=== PATIENT | female | born 1950 | race Caucasian/White ===

== ENCOUNTER 2019-08-22 14:02 | Outpatient (CLI) | payer MEDICARE, BC ==
[2019-08-22 15:25] LABS: BASOPHILS # (AUTO) 0.03 x10^3/uL (0-0.1); BASOPHILS % (AUTO) 0 % (0-1); EOSINOPHILS # (AUTO) 0.45 x10^3/uL (0-0.4); EOSINOPHILS % (AUTO) 5 % (1-7); LYMPHOCYTES # (AUTO) 1.89 x10^3/uL (1-3.4); LYMPHOCYTES % (AUTO) 21 % (22-44); MD NO; MEAN CORPUSCULAR HGB CONC 33.2 g/dL (32.4-35.8); MEAN CORPUSCULAR VOLUME 93.3 fL (80-100); MEAN PLATELET VOLUME 8.5 fL (7.4-10.4); MONOCYTES % (AUTO) 10 % (2-9); NEUTROPHILS % (AUTO) 63 % (42-75); PLATELET COUNT 234 x10^3/uL (130-400); RED CELL DISTRIBUTION WIDTH 13.6 % (9.6-15.2)
[2019-08-22 15:29] LABS: ALANINE AMINOTRANSFERASE 23 U/L (12-78); ALBUMIN 3.7 g/dL (3.4-5.0); ANION GAP 6 mmol/L (5-15); CHLORIDE 109 mmol/L (98-107)
[2019-08-22 15:32] LABS: ALKALINE PHOSPHATASE 86 U/L (45-117); BILIRUBIN,TOTAL 0.3 mg/dL (0.2-1.0); TOTAL PROTEIN 7.9 g/dL (6.4-8.2)
== END 2019-08-22 23:59 | disposition home or self-care (01) ==
LOC: STAR 14:02
PROVIDERS: ATTEND Urology
DX: Z01.818 Encounter for other preprocedural examination (principal); N20.0 Calculus of kidney
CPT/HCPCS: 36415; 80053; 85025; 93005

== ENCOUNTER → 2019-08-29 | Outpatient (CLI) | payer MEDICARE, BC ==
[~2019-08-29] MED LIST: ATOR40TA78 PO; CYCL1DRO EACHEYE; ESTR0.5T PO; ESZO3TAB28 PO; LEVO50TA5 PO; METO50TA82 PO; METOPROLO; SERT50TA28 PO; TRAN1TBM PO
== END | disposition home or self-care (01) ==
LOC: RAD 14:37
PROVIDERS: ATTEND Urology
DX: N20.0 Calculus of kidney (principal)
CPT/HCPCS: 74018

== ENCOUNTER 2019-08-30 07:58 | Day surgery (SDC) | payer MEDICARE, BC ==
[~2019-08-30] VITALS: Ht 152.4 cm; Wt 66.7 kg
[2019-08-30] MEDS ORDERED: LACTATED RINGERS 1,000 ML IV SCH (08:16)
[2019-08-30 08:19] VITALS: BP 117/68
[2019-08-30] MEDS ORDERED: FENTANYL PF 100 MCG/2ML IV PRN (08:30)
[2019-08-30] MEDS ORDERED: HYDROmorphone 2 MG/ML, 1ML IVPush PRN (08:30)
[2019-08-30] MEDS ORDERED: ACETAMINOPHEN 325 MG TABLET PO PRN (08:30)
[2019-08-30] MEDS ORDERED: LORazepam 2 MG/ML, 1ML IVPush PRN (08:30)
[2019-08-30] MEDS ORDERED: OXYcodone 5 MG/5 ML ORAL.SOL UDC PO PRN (08:30)
[2019-08-30] MEDS ORDERED: LIDOCAINE-MPF 1%, 2ML INFIL ONE (08:30)
[2019-08-30] MEDS ORDERED: MEPERIDINE/PF 25MG/ML,1ML IVPush PRN (08:30)
[2019-08-30] MEDS ORDERED: CYCL1DRO EACHEYE (08:38)
[2019-08-30] MEDS ORDERED: SERT50TA28 PO (08:38)
[2019-08-30] MEDS ORDERED: METO50TA82 PO (08:38)
[2019-08-30] MEDS ORDERED: METOPROLO (08:38)
[2019-08-30] MEDS ORDERED: LEVO50TA5 PO (08:38)
[2019-08-30] MEDS ORDERED: TRAN1TBM PO (08:38)
[2019-08-30] MEDS ORDERED: ESZO3TAB28 PO (08:38)
[2019-08-30] MEDS ORDERED: ESTR0.5T PO (08:38)
[2019-08-30] MEDS ORDERED: ATOR40TA78 PO (08:38)
[2019-08-30] MEDS ORDERED: PHENYLEPHRINE 10 MG/ML ONE (08:50)
[2019-08-30] MEDS ORDERED: ROCURONIUM 10 MG/ML,10ML ONE (08:50)
[2019-08-30] MEDS ORDERED: DEXAMETHASONE 4 MG/ML, 1ML ONE (08:50)
[2019-08-30] MEDS ORDERED: GLYCOPYRROLATE 0.2MG/1ML, 5ML ONE (08:50)
[2019-08-30] MEDS ORDERED: PROPOFOL 10 MG/ML, 20ML ONE (08:50)
[2019-08-30] MEDS ORDERED: CEFAZOLIN 1,000 MG ONE (08:50)
[2019-08-30] MEDS ORDERED: NEOSTIGMINE 1 MG/ML, 10ML ONE (08:50)
[2019-08-30] MEDS ORDERED: MIDAZOLAM 1 MG/ML, 2ML ONE (09:40)
[2019-08-30] MEDS ORDERED: FENTANYL PF 100 MCG/2ML ONE ×3 (09:40→13:31)
[2019-08-30] MEDS ORDERED: MEPERIDINE/PF 25MG/ML,1ML ONE (13:15)
[2019-08-30] MEDS ORDERED: KETOROLAC 30 MG/1 ML ONE (14:56)
[2019-08-30] MEDS ORDERED: KETOROLAC 30 MG/1 ML IVPush ONE (15:00)
== END 2019-08-30 18:20 | disposition home or self-care (01) ==
LOC: OUT 07:58
PROVIDERS: ATTEND Urology
DX: N20.1 Calculus of ureter (principal); I10 Essential (primary) hypertension; E78.5 Hyperlipidemia, unspecified; E03.9 Hypothyroidism, unspecified
CPT/HCPCS: 52356; 82360; 88300; C2617; J0690; J1100; J1885; J2175; J2250; J2370; J2704; J2710; J3010; J7120